=== PATIENT | female | born 1935 | race Caucasian/White ===

== ENCOUNTER 2018-12-29 18:20 | Inpatient (IN) | payer MEDICARE, MEDICAID ==
--- NOTE | 2018-12-29 18:28 | EDM.PDOC ---
ED HPI GENERAL MEDICAL PROBLEM - General Chief Complaint: General Stated Complaint: seizure Time Seen by Provider: 12/29/18 18:20 Source of Information: Reports: Patient, EMS History Limitations: Reports: No Limitations - History of Present Illness INITIAL COMMENTS - FREE TEXT/NARRATIVE: pt [facility] where she was at the dinner table and went backwards and started having a seizure which lasted about 2 minutes, no hx of seizures, pt c/o Left sided NORMAN, is alert and awake and follows commands. no cp or sob, does c/o some nausea Onset: Today, Sudden Duration: Minutes: Location: Reports: Generalized Severity: Severe Associated Symptoms: Reports: Headaches, Seizure Treatments COIN COLLECTOR: Reports: See EMS Report - Related Data Allergies Allergy/AdvReac Type Severity Reaction Status Date / Time cabbage Allergy Cannot Verified 12/29/18 19:19 Remember ciprofloxacin [From Cipro] Allergy Cannot Verified 12/29/18 19:19 Remember ciprofloxacin HCl Allergy Cannot Verified 12/29/18 19:19 [From Cipro] Remember ibuprofen [From Motrin] Allergy Cannot Verified 12/29/18 19:19 Remember meperidine HCl [From Demerol] Allergy Cannot Verified 12/29/18 19:19 Remember morphine Allergy Cannot Verified 12/29/18 19:19 Remember moxifloxacin HCl Allergy Cannot Verified 12/29/18 19:19 [From Avelox] Remember phenytoin sodium Allergy Cannot Verified 12/29/18 19:19 [From Dilantin] Remember phenytoin sodium extended Allergy Cannot Verified 12/29/18 19:19 [From Dilantin] Remember propoxyphene HCl Allergy Cannot Verified 12/29/18 19:19 [From Darvon] Remember broccoli Allergy Cannot Uncoded 05/29/15 07:00 Remember cabbage Allergy Cannot Uncoded 05/29/15 07:00 Remember Home Meds: Home Meds Acetaminophen [Tylenol Extra Strength] 1,000 mg PO Q4H PRN 07/02/14 [History] Albuterol [Proair HFA] 2 puff IH QID PRN 07/02/14 [History] Albuterol/Ipratropium [DuoNeb 3-0.5 MG/3 ML] 3 ml IH QID 07/02/14 [History] Calcium Carbonate/Vitamin D3 [Calcium 600 + Vit D3 Tablet] 1 tab PO DAILY [History] Cholecalciferol (Vitamin D3) [Vitamin D] 2,000 unit PO DAILY 07/02/14 [History] Docusate Sodium [Colace] 100 mg PO DAILY 07/02/14 [History] Escitalopram [Lexapro] 10 mg PO DAILY 07/02/14 [History] Lutein/Minerals/Vit A,C & E [Ocuvite] 2 tab PO BID 07/02/14 [History] Meclizine [Antivert] 25 mg PO BID 07/02/14 [History] Montelukast Sodium 10 mg PO DAILY 07/02/14 [History] Polyvinyl Alcohol/Povidone [Refresh Eye Drops] 1 each EYEBOTH TID 07/02/14 [ History] Simvastatin [Zocor] 20 mg PO BEDTIME 07/02/14 [History] Tiotropium [Spiriva] 1 puff INH DAILY 07/02/14 [History] guaiFENesin [Guiatuss] 200 - 400 mg PO Q3H PRN 07/02/14 [History] guaiFENesin [Mucinex] 600 mg PO DAILY 07/02/14 [History] Past Medical History HEENT History: Reports: Impaired Vision, Macular Degeneration Respiratory History: Reports: COPD Gastrointestinal History: Reports: Chronic Constipation 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: Other (See Below) Other 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 History: vaginitis Musculoskeletal History: Reports: Osteoporosis Neurological History: Reports: Brain Injury Social & Family History - Tobacco Use Smoking Status *Q: Never Smoker - Alcohol Use Alcohol Use History: No - Living Situation & Occupation Living situation: Reports: Single, Extended Care Facility Occupation: Retired ED ROS GENERAL - Review of Systems Review Of Systems: See Below Constitutional: Reports: No Symptoms HEENT: Reports: No Symptoms Respiratory: Reports: No Symptoms Cardiovascular: Reports: No Symptoms Endocrine: Reports: No Symptoms GI/Abdominal: Reports: No Symptoms : Reports: No Symptoms Musculoskeletal: Reports: No Symptoms Skin: Reports: No Symptoms Neurological: Reports: Seizure Psychiatric: Reports: No Symptoms ED EXAM, GENERAL - Physical Exam Exam: See Below Exam Limited By: No Limitations General Appearance: Alert, WD/WN, No Apparent Distress Eye Exam: Bilateral Eye: EOMI, PERRL Ears: Normal External Exam, Normal Canal, Hearing Grossly Normal, Normal TMs Ear Exam: Bilateral Ear: Auricle Normal, Canal Normal, TM normal Nose: Normal Inspection Throat/Mouth: Normal Inspection, Normal Lips, Normal Oropharynx, Normal Voice, No Airway Compromise Neck: Normal Inspection, Supple, Non-Tender, Full Range of Motion Respiratory/Chest: No Respiratory Distress, Lungs Clear, Normal Breath Sounds, No Accessory Muscle Use Cardiovascular: Normal Peripheral Pulses, Regular Rate, Rhythm Peripheral Pulses: 2+: Radial (L), Radial (R) GI/Abdominal: Soft, Non-Tender Back Exam: Normal Inspection Extremities: Normal Inspection, Normal Range of Motion, Non-Tender, No Pedal Edema, Normal Capillary Refill Neurological: Alert, Oriented, CN II-XII Intact, Normal Cognition, No Motor/ Sensory Deficits Psychiatric: Normal Affect, Normal Mood Skin Exam: Warm, Dry, Intact, Normal Color EKG INTERPRETATION EKG Date: 12/29/18 Time: 18:33 Rhythm: Other (STach) [place]: Normal P-Wave: Present QRS: Normal ST-T: Normal QT: Normal EKG Interpretation Comments: Stach with a Vent rate of 112, poor R wave progression, Occasional PAC, RSR progression left limb leads Course - Vital Signs Last Recorded V/S: Last Vital Signs Temp 35.6 C 12/29/18 18:21 Pulse 110 H 12/29/18 19:04 Resp 16 12/29/18 19:04 BP 123/63 12/29/18 19:04 Pulse Ox 95 12/29/18 19:04 - Orders/Labs/Meds Orders: Active Orders 24 hr Category Date Time Status EKG Documentation Completion [RC] STAT Care 12/29/18 18:43 Active Chest 1V Frontal [CR] Stat Exams 12/29/18 18:30 Taken Head wo Cont [CT] Stat Exams 12/29/18 18:30 Taken Sodium Chloride 0.9% [Saline Flush] Med 12/29/18 18:30 Active 10 ml FLUSH ASDIRECTED PRN Saline Lock Insert [OM.PC] Routine Oth 12/29/18 18:30 Ordered Seizure Precautions [OM.PC] Routine Oth 12/29/18 18:30 Ordered Medication Orders Sodium Chloride (Saline Flush) 10 ml FLUSH ASDIRECTED PRN PRN Reason: Keep Vein Open Labs: Laboratory Tests 12/29/18 12/29/18 Range/Units 19:04 19:04 WBC 12.4 H (5.0-10.0) 10^3/uL RBC 3.76 L (4.00-5.50) 10^6/uL Hgb 11.9 L (12.0-16.0) g/dL Hct 36.1 L (37.0-47.0) % MCV 96.0 H (82.0-94.0) fL MCH 31.6 (27.0-32.0) pg MCHC 33.0 (33.0-38.0) g/dL RDW Coeff of Aleida 13.8 (11.0-15.0) % Plt Count 203 (150-400) 10^3/uL Neut % (Auto) 77.6 (35-85) % Lymph % (Auto) 11.8 (10-55) % Gordon % (Auto) 7.8 (0-16) % Eos % (Auto) 2.6 (0-5) % Baso % (Auto) 0.2 (0-3) % Neut # (Auto) 9.59 H (1.80-7.00) 10^3/uL Lymph # (Auto) 1.46 (1.00-4.80) 10^3/uL Gordon # (Auto) 0.96 H (0.00-0.80) 10^3/uL Eos # (Auto) 0.32 (0.00-0.45) 10^3/uL Baso # (Auto) 0.03 10^3/uL Sodium 133 L (136-145) mEq/L Potassium 4.5 (3.5-5.0) mEq/L Chloride 96 L (98-106) mEq/L Carbon Dioxide 25 (21-32) mmol/L BUN 22 H (7-18) mg/dL Creatinine 1.3 H (0.6-1.0) mg/dL Est Cr Clr Drug Dosing 28.60 mL/min Estimated GFR (MDRD) 39 L (>=60) mL/min Glucose 147 H D (75-99) mg/dL Calcium 9.9 (8.4-10.1) mg/dL Total Bilirubin 0.7 (0.0-1.0) mg/dL AST 21 (15-37) U/L ALT 17 (12-78) U/L Alkaline Phosphatase 69 (46-116) U/L Troponin I 0.354 H (0.00-0.06) ng/mL Total Protein 7.1 (6.4-8.2) g/dL Albumin 3.7 (3.4-5.0) g/dL Meds: Medications Generic Name Dose Route Start Last Admin Trade Name Freq PRN Reason Stop Dose Admin Sodium Chloride 10 ml 12/29/18 18:30 Saline Flush FLUSH ASDIRECTED PRN Keep Vein Open Discontinued Medications Generic Name Dose Route Start Last Admin Trade Name Freq PRN Reason Stop Dose Admin Aspirin 324 mg 12/29/18 19:51 12/29/18 20:19 Aspirin PO 12/29/18 19:52 324 mg ONETIME ONE Administration - Radiology Interpretation Free Text/Narrative:: 1907 cxr neg, pending radiology reading, CT brain, no acute ICH, has some white matter ischemic changes for age, pending radiology reading Departure - Departure Time of Disposition: 21:34 Disposition: Admitted As Inpatient 66 Condition: Good Clinical Impression: Seizures, Renal insufficiency, Elevated troponin - Discharge Information *PRESCRIPTION DRUG MONITORING PROGRAM REVIEWED*: Not Applicable *COPY OF PRESCRIPTION DRUG MONITORING REPORT IN PATIENT ELLIS: Not Applicable Forms: ED Department Discharge ED Communication - Conversation Summary Summary Comment: 1929 the pts contact list gives th pts dgtr who lives in [place], I called and spoke with her and she said she was the MPOA but "Mely" in case mgmt at the [facility] told her she was not any longer. We have tried to call the [facility], noone answers the phone, will continue to try to get an answer at the [facility]. 2009 The [facility] called, the pts AYUSH is another daughter named Barbara, they will look for the number and call back. 2025 alf called back and her number is [phone], I called and got an answering machine, I left a message with the ED phone number for her to call me back. - Problem List & Annotations (1) Elevated troponin SNOMED Code(s): 583763882, 291948806, 687062473 Code(s): R74.8 - ABNORMAL LEVELS OF OTHER SERUM ENZYMES Status: Acute Priority: High Current Visit: Yes (2) Renal insufficiency SNOMED Code(s): 597361500, 113877746 Code(s): N28.9 - DISORDER OF KIDNEY AND URETER, UNSPECIFIED Status: Acute Priority: High Current Visit: Yes (3) Seizures SNOMED Code(s): 83486126 Code(s): R56.9 - UNSPECIFIED CONVULSIONS Status: Acute Priority: High Current Visit: Yes - Problem List Review Problem List Initiated/Reviewed/Updated: Yes - My Orders Last 24 Hours: My Active Orders 12/29/18 18:30 Chest 1V Frontal [CR] Stat Head wo Cont [CT] Stat Sodium Chloride 0.9% [Saline Flush] 10 ml FLUSH ASDIRECTED PRN Saline Lock Insert [OM.PC] Routine Seizure Precautions [OM.PC] Routine 12/29/18 18:43 EKG Documentation Completion [RC] STAT - Assessment/Plan Admission H&P: Please use this note as an admission H&P Last 24 Hours: My Active Orders 12/29/18 18:30 Chest 1V Frontal [CR] Stat Head wo Cont [CT] Stat Sodium Chloride 0.9% [Saline Flush] 10 ml FLUSH ASDIRECTED PRN Saline Lock Insert [OM.PC] Routine Seizure Precautions [OM.PC] Routine 12/29/18 18:43 EKG Documentation Completion [RC] STAT Plan: 2134 still can not reach the pts MPOA, will keep at this facility and repeat EKG and trop and continue to reach the pts MPOA, I suspect the pt can be having a NON-STEMI, I suspect she could have had a dysrhythmia possibly that may have caused her sx secondary to this elevated trop, the pt is a DNR
[2018-12-29] MEDS ORDERED: Sodium Chloride 0.9% 10 ML Syringe FLUSH PRN (18:30)
[2018-12-29] MEDS ORDERED: Aspirin 81 MG Tab.Chew PO ONE (19:51)
[2018-12-29] MEDS ORDERED: Albuterol 8 GM Inhaler INH PRN (21:47)
[2018-12-29] MEDS ORDERED: Acetaminophen 500 MG Tab PO PRN (21:47)
[2018-12-29] MEDS ORDERED: Enoxaparin 60 MG/0.6 ML Syringe SUBCUT SCH (22:00)
[2018-12-30 00:04] VITALS: BP 116/57; PULSE 111
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
[2018-12-30] MEDS ORDERED: Beta-Carotene (Vitamin A) w/Vitamin C & E plus Minerals Tab PO SCH (08:00)
[2018-12-30] MEDS ORDERED: Tiotropium Inhaler 18 MCG Inhalation Powder Cap Kit of 5 INH SCH (08:00)
[2018-12-30] MEDS ORDERED: Montelukast 10 MG Tab PO SCH (08:00)
[2018-12-30] MEDS ORDERED: Docusate Sodium 100 MG Cap PO SCH (08:00)
[2018-12-30] MEDS ORDERED: Cholecalciferol (Vitamin D3) 25 MCG Tab PO SCH (08:00)
[2018-12-30] MEDS ORDERED: POVIDONE EYEBOTH SCH (08:00)
[2018-12-30] MEDS ORDERED: Meclizine 12.5 MG Tab PO SCH (08:00)
[2018-12-30] MEDS ORDERED: Calcium Carbonate/Vitamin D3 1250 MG-200 Unit Tab PO SCH (08:00)
[2018-12-30] MEDS ORDERED: Citalopram 10 MG Tab PO SCH (08:00)
[2018-12-30] MEDS ORDERED: POLYVINYL ALCOHOL EYEBOTH SCH (08:00)
[2018-12-30] MEDS ORDERED: Albuterol/Ipratropium 3.0-0.5 MG/3 ML Neb Soln INH SCH (08:00)
[2018-12-30] MEDS ORDERED: Simvastatin 20 MG Tab PO SCH (20:00)
== END 2018-12-30 03:00 | DRG 101 ==
LOC: CC.ED 18:20 → CC.MS 21:41 → CC.ED 22:10 → CC.MS 22:15 → UNDOADMIN 22:15 → UNDODISIN 12-30 03:00
PROVIDERS: ADMIT Nurse Practitioner; ATTEND Nurse Practitioner
DX: R56.9 Unspecified convulsions (principal); R74.8 Abnormal levels of other serum enzymes; N28.9 Disorder of kidney and ureter, unspecified; H54.7 Unspecified visual loss; K59.09 Other constipation; H35.30 Unspecified macular degeneration; Z66 Do not resuscitate; J44.9 Chronic obstructive pulmonary disease, unspecified; K59.00 Constipation, unspecified; M81.0 Age-related osteoporosis without current pathological fracture; Z88.8 Allergy status to other drugs, medicaments and biological substances; Z88.1 Allergy status to other antibiotic agents; Z88.5 Allergy status to narcotic agent; Z91.018 Allergy to other foods; Z79.899 Other long term (current) drug therapy
CPT/HCPCS: 36415; 70450; 71045; 80053; 84484; 85025; 93005; 99285; A9270; 93010; J1650